=== PATIENT | male | born 1940 | race Caucasian/White ===

== ENCOUNTER 2017-03-22 08:43 | Emergency (ER) | payer MEDICARE, OTHER ==
[~2017-03-22] VITALS: Ht 182.9 cm; Wt 69.0 kg
[2017-03-22 08:45] VITALS: Ht 182.9 cm; Wt 69.0 kg
[2017-03-22] MEDS ORDERED: SOD CHLORIDE 0.9% 1,000 ML IV STA (08:49)
[2017-03-22 09:21] LABS: ABNORMAL IP MESSAGE 1; BASOPHILS % 0.2 % (0.0-2.0); EOSINOPHILS % 0.5 % (0.0-7.0); HEMATOCRIT 33.1 % (42.0-52.0); HEMOGLOBIN 10.9 g/dl (14.0-18.0); LYMPHOCYTES # 0.3 10^3/ul (0.8-2.9); LYMPHOCYTES % 5.2 % (15.0-51.0); MEAN CORPUSCULAR HEMOGLOBIN 31.6 pg (29.0-33.0); MEAN CORPUSCULAR HGB CONC 32.9 g/dl (32.0-37.0); MEAN CORPUSCULAR VOLUME 95.9 fl (82.0-101.0); MEAN PLATELET VOLUME 8.5 fl (7.4-10.4); MONOCYTE # 0.3 10^3/ul (0.3-0.9); MONOCYTES % 4.7 % (0.0-11.0); NEUTROPHIL # 5.5 10^3/ul (1.6-7.5); NEUTROPHILS % 89.1 % (39.0-77.0); PLATELET COUNT 173 10^3/UL (140-415); POSITIVE DIFF @See below; RED BLOOD COUNT 3.45 10^6/ul (4.70-6.10); RED CELL DISTRIBUTION WIDTH 12.8 % (11.5-14.5); WHITE BLOOD COUNT 6.1 10^3/ul (4.8-10.8)
--- NOTE | 2017-03-22 09:37 | RADRPT ---
PROCEDURE: XR Chest. CLINICAL INDICATION: Abdominal Pain TECHNIQUE: Single frontal view of the chest was obtained. COMPARISON: None. FINDINGS: The aortic arch is calcified. The heart and mediastinum are within normal limits. The lungs are clear. There is no significant pleural effusion or pneumothorax. IMPRESSION: No acute disease. RPTAT: EE Physician Robbie Date Time Electronically viewed and signed by Ilan Richard Physician on 03/22/2017 09:37 RA/
[2017-03-22 09:47] LABS: ALBUMIN 4.2 g/dl (3.3-4.9); ALBUMIN/GLOBULIN RATIO 1.27; BILIRUBIN,INDIRECT 0.1 mg/dl (0-1.1); BILIRUBIN,TOTAL 0.1 mg/dl (0.2-1.3); CALCIUM 9.5 mg/dl (8.4-10.2); CREATININE 1.59 mg/dl (0.61-1.24); POTASSIUM 4.9 mmol/L (3.5-5.1); TOTAL PROTEIN 7.5 g/dl (6.1-8.1)
[2017-03-22 09:57] LABS: ADD UMIC YES; UR ASCORBIC ACID 40 mg/dL (NEGATIVE); UR BACTERIA FEW /HPF (NONE SEEN); UR BILIRUBIN (Dip) NEGATIVE (NEGATIVE); UR BLOOD (Dip) NEGATIVE (NEGATIVE); UR CLARITY CLOUDY (CLEAR); UR COLOR YELLOW (YELLOW); UR GLUCOSE (Dip) NEGATIVE (NEGATIVE); UR KETONES (Dip) NEGATIVE (NEGATIVE); UR LEUKOCYTE ESTERASE (Dip) 3+ Leu/ul (NEGATIVE); UR MUCUS FEW /HPF (NONE SEEN); UR NITRITE (Dip) NEGATIVE (NEGATIVE); UR RBC 12 /HPF (0-5); UR SPECIFIC GRAVITY (Dip) 1.018 (1.003-1.030); UR TOTAL PROTEIN (Dip) 2+ mg/dl (NEGATIVE); UR UROBILINOGEN (Dip) NEGATIVE (NEGATIVE)
[2017-03-22] MEDS ORDERED: CIPR500T4 PO (10:10)
--- NOTE | 2017-03-22 10:11 | ERD ---
ER Documentation Chief Complaint Chief Complaint BIB R81, WEAKNESS X1 DAY S/P RADIATION PROSTATE CA HPI Patient is a 76-year-old male with prostate cancer, diabetes, and hypertension who presents saying that he is "not feeling well". The patient was brought in by ambulance. The patient had radiation therapy yesterday for prostate cancer. He said that his symptoms started yesterday with "dizziness and blurry vision ". He feels overall weakness and is having incontinence. He called [facility] who told him to go to the emergency department. He does not receive chemotherapy. He has had no fevers. ROS All systems reviewed and are negative except as per history of present illness. Medications Home Meds Active Scripts Ciprofloxacin Hcl* (Ciprofloxacin Hcl*) 500 Mg Tablet, 500 MG PO BID for 7 Days , TAB Prov:DANIELLA WARREN MD 03/22/17 PMhx/Soc Positive for diabetes, hypertension, and prostate cancer FmHx Family History: No diabetes Physical Exam Vitals Vital Signs Date Time Temp Pulse Resp B/P Pulse Ox O2 Delivery O2 Flow Rate FiO2 03/22/17 10:51 98.0 82 14 146/74 100 Room Air 03/22/17 08:55 97.6 79 16 142/74 100 Room Air 03/22/17 08:45 97.6 84 20 156/75 100 Physical Exam Const: No acute distress Head: Atraumatic Eyes: Normal Conjunctiva ENT: Normal External Ears, Nose and Mouth. Neck: Full range of motion..~ No meningismus. Resp: Clear to auscultation bilaterally Cardio: Regular rate and rhythm, no murmurs Abd: Soft, non tender, non distended. Normal bowel sounds Skin: No petechiae or rashes Back: No midline or flank tenderness Ext: No cyanosis, or edema Neur: Awake and alert, cranial nerves II through XII intact, strength is 5 out of 5 in all 4 extremities, no slurred speech Psych: Normal Mood and Affect Result Diagram: 03/22/1790403/22/17904 Results 24 hrs Laboratory Tests Test 03/22/17 09:05 03/22/17 09:15 White Blood Count 6.110^3/ul Red Blood Count 3.4510^6/ul Hemoglobin 10.9g/dl Hematocrit 33.1% Mean Corpuscular Volume 95.9fl Mean Corpuscular Hemoglobin 31.6pg Mean Corpuscular Hemoglobin Concent 32.9g/dl Red Cell Distribution Width 12.8% Platelet Count 44782^3/UL Mean Platelet Volume 8.5fl Neutrophils % 89.1% Lymphocytes % 5.2% Monocytes % 4.7% Eosinophils % 0.5% Basophils % 0.2% Nucleated Red Blood Cells % 0.0/100WBC Neutrophils # 5.510^3/ul Lymphocytes # 0.310^3/ul Monocytes # 0.310^3/ul Eosinophils # 0.010^3/ul Basophils # 0.010^3/ul Nucleated Red Blood Cells # 0.010^3/ul Sodium Level 140mmol/L Potassium Level 4.9mmol/L Chloride Level 105mmol/L Carbon Dioxide Level 24mmol/L Anion Gap 16 Blood Urea Nitrogen 27mg/dl Creatinine 1.59mg/dl Glucose Level 86mg/dl Calcium Level 9.5mg/dl Total Bilirubin 0.1mg/dl Direct Bilirubin 0.00mg/dl Indirect Bilirubin 0.1mg/dl Aspartate Amino Transf (AST/SGOT) 34IU/L Alanine Aminotransferase (ALT/SGPT) 24IU/L Alkaline Phosphatase 86IU/L Total Protein 7.5g/dl Albumin 4.2g/dl Globulin 3.30g/dl Albumin/Globulin Ratio 1.27 Lipase 216U/L Urine Color YELLOW Urine Clarity CLOUDY Urine pH 5.0 Urine Specific [place] 1.018 Urine Ketones NEGATIVEmg/dL Urine Nitrite NEGATIVEmg/dL Urine Bilirubin NEGATIVEmg/dL Urine Urobilinogen NEGATIVEmg/dL Urine Leukocyte Esterase 3+[place]/ul Urine Microscopic RBC 12/HPF Urine Microscopic WBC > 182/HPF Urine Bacteria FEW/HPF Urine Mucus FEW/HPF Urine Hemoglobin NEGATIVEmg/dL Urine Glucose NEGATIVEmg/dL Urine Total Protein 2+mg/dl Current Medications Medications (Trade) Dose Ordered Sig/Carlos Route PRN Reason Start Time Stop Time Status Last Admin Dose Admin Sodium Chloride (NS) 1,000 ml @ 1,000 mls/hr Q1H STAT IV 03/22/17 08:49 03/22/17 09:48 DC 03/22/17 09:26 Ciprofloxacin (Cipro) 500 mg ONCE ONCE PO 03/22/17 10:30 03/22/17 10:31 DC 03/22/17 10:48 Procedures/MDM EKG read by me: Rate/Rhythm: Regular rate and rhythm at a rate of 82 Intervals: Normal Impression: No evidence of ischemia or arrhythmia Chest x-ray negative per radiology. Smoking Cessation Therapy: Pt. was lectured for greater than 3 minutes on the health risks of continued smoking and the benefits of cessation. Patient is a 76-year-old male who presents with dizziness and weakness. He was found to have acute cystitis. There is no sign of sepsis at this time and he is otherwise well-appearing with stable vital signs. I believe outpatient management is appropriate and I will treat him with Cipro. I doubt stroke, intracranial hemorrhage, or intracranial mass. The patient will be discharged and can return for any worsening symptoms. The patient should follow-up with his primary doctor within 24 hours. Departure Diagnosis: Primary Impression: Cystitis Additional Impression: Acute weakness Condition: Fair Patient Instructions: Cystitis, Weakness, Unk Cause Referrals: TERRELL CARREON MD Additional Instructions: Call your primary care doctor TOMORROW for an appointment during the next 1-2 days.See the doctor sooner or return here if your condition worsens before your appointment time. DANIELLA WARREN MD Mar 22, 2017 10:11
[2017-03-22] MEDS ORDERED: CIPROFLOXACIN 500 MG TAB PO ONE (10:30)
[2017-03-22 10:51] VITALS: BP 146/74; PULSE 82; RESP 14; TEMP 98
== END 2017-03-22 11:07 | disposition home or self-care (01) ==
LOC: E/R 08:43
DX: N30.90 Cystitis, unspecified without hematuria (principal); E11.9 Type 2 diabetes mellitus without complications; I10 Essential (primary) hypertension; Z85.46 Personal history of malignant neoplasm of prostate
CPT/HCPCS: 36415; 71010; 80053; 81001; 83690; 85025; 87086; 96360; 99285; J7030